=== PATIENT | male | born 1970 | race Caucasian/White ===

== ENCOUNTER 2018-02-26 00:23 | Observation (INO) ==
[2018-02-26 00:47] LABS: Basophils # 0.1 K/mm3 (0-0.2); Basophils % 0.6 % (0.1-2.0); Eosinophils # 0.2 K/mm3 (0.0-0.4); Eosinophils % 1.7 % (0.1-12.0); Hemoglobin 14.9 g/dL (14.1-18.0); Lymphocytes # 2.6 K/mm3 (0.7-4.5); Lymphocytes % 21.4 K/mm3 (10-50); Mean Corpuscular HGB Conc 32.4 g/dL (31.8-35.4); Mean Corpuscular Hemoglobin 27.6 pg (27.0-31.2); Mean Corpuscular Volume 85.1 fl (80-94); Mean Platelet Volume 8.9 fl (7.4-10.4); Monocytes # 0.7 K/mm3 (0.1-1.0); Monocytes % 5.6 % (1.7-9.3); Neutrophils # 8.5 K/mm3 (1.8-7.8); Neutrophils % 70.7 % (37.0-80.0); Platelet Count 199 K/mm3 (142-424); Red Blood Count 5.41 M/mm3 (4.60-6.20); Red Cell Distribution Width 13.3 % (11.5-17.5)
[2018-02-26 00:57] LABS: Bilirubin,Total 0.4 mg/dL (0.2-1.0); Calcium 9.3 mg/dL (8.5-10.1); Globulin 3.9 gm/dl (1.3-3.2); Total Protein,Serum 7.9 gm/dL (6.4-8.2)
--- NOTE | 2018-02-26 01:07 | Emergency Department Note ---
ED Disposition Clinical Impression: Renal insufficiency Cholecystitis with cholelithiasis Qualifiers: Cholelithiasis location: gallbladder Cholecystitis acuity: acute Biliary obstruction: without biliary obstruction Qualified Code(s): K80.00 - Calculus of gallbladder with acute cholecystitis without obstruction Disposition: Admitted as Observation Condition on Discharge: Good - Critical Care Critical Care Time: No Attestation: On 02/26/18, the high probability of a clinically significant, sudden or life threatening deterioration of the following system(s) required my full and direct attention, intervention and personal management. The time I documented below is in addition to time spent performing reported procedures but includes the following listed in this critical care notation. Medical Decision Making - Medical Records Medical records reviewed: Yes: I reviewed the patient's medical records. - Idris Inquiry Pt receiving controlled substance: No Vital Signs: 02/26/18 00:26 Pulse Rate [Left Radial] 78 Respiratory Rate 18 Blood Pressure [Left Arm] 143/104 Blood Pressure Mean [Left Arm] 117 Blood Pressure Source [Left Arm] Automatic Cuff Blood Pressure Position [Left Arm] Sitting 02 Sat by Pulse Oximetry 100 Oxygen Delivery Method Room Air - Lab Data Lab results reviewed: Yes: I reviewed the patient's lab results. Lab Results 02/26/18 00:35: WBC 12.0 H, RBC 5.41, Hgb 14.9, Hct 46.0, MCV 85.1, MCH 27.6, MCHC 32.4, RDW 13.3, Plt Count 199, MPV 8.9, Neut % (Auto) 70.7, Lymph % (Auto) 21.4, [place] % (Auto) 5.6, Eos % (Auto) 1.7, Baso % (Auto) 0.6, Neut # (Auto) 8.5 H, Lymph # (Auto) 2.6, [place] # (Auto) 0.7, Eos # (Auto) 0.2, Baso # (Auto) 0.1 02/26/18 00:35: Sodium 139, Potassium 4.0, Chloride 103, Carbon Dioxide 25, Anion Gap 15.0, BUN 20 H, Creatinine 1.40 H, Estimated Creat Clear 123, Estimated GFR 54 L, Est GFR ( Amer) 65, Glucose 185 H, Calcium 9.3, Total Bilirubin 0.4, AST 20, ALT 39, Alkaline Phosphatase 103, Total Protein 7.9 , Albumin 4.0, Globulin 3.9 H, Albumin/Globulin Ratio 1.0 L, Amylase 95, Lipase 185 Result diagrams: 02/26/18 00:35 02/26/18 00:35 Orders (Tests/Meds): ED MEDICATIONS Discontinued Medications Generic Name Dose Route Start Last Admin Trade Name Ahsanq PRN Reason Stop Dose Admin Famotidine 20 mg 02/26/18 00:34 02/26/18 00:38 Pepcid 20mg/2ml Vial IV 02/26/18 00:35 20 mg ONCE ONE Administration Ketorolac Tromethamine 30 mg 02/26/18 00:45 02/26/18 00:45 Toradol 30mg/Ml Vial IV 02/26/18 00:46 30 mg ONCE ONE Administration Metoclopramide HCl 10 mg 02/26/18 00:34 02/26/18 00:38 Reglan 10mg/2ml Vial IVP 02/26/18 00:35 10 mg ONCE ONE Administration Morphine Sulfate 4 mg 02/26/18 01:06 02/26/18 01:07 Morphine 4mg/Ml Syringe IV 02/26/18 01:07 4 mg ONCE ONE Administration Ondansetron HCl 4 mg 02/26/18 01:02 02/26/18 01:06 Zofran 4mg/2ml Vial IV 02/26/18 01:03 4 mg ONCE ONE Administration ORDERS Category Date Time Status CT abdomen pelvis w con Stat Cat Scan 02/26/18 00:[address] abdomen pelvis wo con Stat Cat Scan 02/26/18 00:49 Ordered - CT Data CT Scan: Abdomen, Pelvis Time Received: 01:[address] Reviewed: Yes: I have viewed the radiologist's interpretation Preliminary Findings: Abnormal (see report) - ECG Data Tracing #1 I reviewed this ECG and interpreted as documented below: Normal Sinus Rhythm: Yes Ischemic changes: non-specific ST-T wave changes - Physician Consults Physician Consulted: kandice Reason -: Admission Nausea/Vomiting/Diarrhea HPI - General Chief complaint: Abdominal Pain Stated complaint: Lower Abdominal Pain Time Seen by Provider: 02/26/18 00:35 Mode of Arrival: Ambulatory Source of Information: Patient, Spouse, Medical Record Limitations: No Limitations Description of Symptoms (Recalled from ER Triage Doc. by RN): Pt reports abdominal pain in RLQ, nausea, and pain in his lower back - History of Present Illness HPI Narrative: progressive rt upper abd pain with nausea tonight - has had gb issue in past MD complaint: nausea, vomiting, abdominal pain Onset (ago): hour(s) Associated Abdominal Pain: Yes Location of pain: RUQ Severity: moderate Quality: sharp Consistency: constant Associated symptoms: nausea/vomiting - Related Data Home Medications Medication Instructions Recorded Confirmed Atorvastatin Calcium [Atorvastatin 20 mg PO DAILY 02/26/18 02/26/18 20mg Tab] Lisinopril [Lisinopril 10mg Tab] 10 mg PO DAILY 02/26/18 02/26/18 Metformin HCl 1,000 mg PO BID 02/26/18 02/26/18 Allergies Allergy/AdvReac Type Severity Reaction Status Date / Time No Known Allergies Allergy Unknown Uncoded 09/16/17 15:[address] [facility] History I have reviewed the patient's past medical history: Yes Medical History: Reports:: Diabetes Mellitus Type 2 - Social History Alcohol Intake: current Alcohol Intake Frequency:: a few times a month - Psychiatric History Expresses thoughts of harming self/others: None Suicide Plan Description: No Plan ROS Obtained: Yes All systems reviewed & no additional complaints - Constitutional Constitutional: Denies fever(s) - Eyes Eyes: Denies change in vision - ENT Ears, Nose, Mouth, and Throat: Denies sore throat - Cardiovascular Cardiovascular: Denies chest pain - Respiratory Respiratory: No cough - Gastrointestinal Gastrointestingal: Reports: as per HPI, abdominal pain, nausea, vomiting. Denies: diarrhea, black, tarry stools - Genitourinary Male Genitourinary: Denies hematuria - Musculoskeletal Musculoskeletal: Denies joint pain, Denies joint swelling - Integumentary/Breasts Skin/Breast: Denies rash - Neurologic Neurologic: Denies seizure-like activity Physical Exam - General General appearance: alert, in no apparent distress - Head Head exam: normocephalic - Eye Eye exam: Present: PERRL, EOMI - ENT ENT exam: Present: mucous membranes dry - Neck Neck exam: Present: trachea midline - Respiratory Respiratory exam: Absent: respiratory distress - Cardiovascular Cardiovascular exam: Present: regular rate, systolic murmur - Abdominal Exam Abdominal exam: Present: soft, tenderness, Rolon's sign Abdominal tenderness: Present: RUQ, moderate - Extremities Exam Extremities exam: Absent: calf tenderness - Neurological Exam Neurological exam: Present: alert, oriented X3, CN II-XII intact - Skin Skin exam: Absent: rash
--- NOTE | 2018-02-26 06:38 | History & Physical Report ---
*Admission Date: 02/26/18 *Chief complaint: Abdominal pain *History of present illness: 48-year-old male with diabetes and morbid obesity presented to the emergency department with a near 12 hour episode of abdominal pain that started in the right flank and right upper quadrant and radiated across the abdomen to the left side. Patient tells me around noon yesterday after eating to turkey sandwiches for lunch he developed a mild nausea and "queasy stomach". The symptom of nausea never decreased. After eating chicken noodle soup for supper his pain began to increase in intensity. When pain was not easing up he presented to the emergency department around midnight. In the ER workup was begun and patient was diagnosed with acute cholecystitis. He has been admitted for abdominal ultrasound, IV fluids, surgical consultation. Patient denies vomiting or diarrhea. His pain did not respond to Tylenol or ibuprofen. He had a similar pain earlier in the week and admits to getting this pain more frequently over the last 2-3 months. He is always believed is related to his gallbladder. His CT scan showed a distended gallbladder with intraluminal stones [facility] History I have reviewed the patient's past medical history: Yes Medical History: Reports:: Diabetes Mellitus Type 2, Hyperlipidemia, Hypertension - *Social History Educational Level: Completed High School Smoking Status: Former smoker Tobacco Type: cigarettes # Packs/Day (cigarettes): 3 #Yrs smoked (if former smoker): 30 Alcohol Intake: never Alcohol Intake Frequency:: a few times a month Occupational Status: employed Housing: house Household Members: spouse, children - Psychiatric History Expresses thoughts of harming self/others: None Suicide Plan Description: No Plan *Family Hx:: Coronary Artery Disease, Diabetes, Heart Attack, Hyperlipidemia, Hypertension, Kidney Disease Review of Systems - Review of Systems Review of systems:: unable to obtain - Constitutional Reports chills - *Cardiovascular Denies chest pain at rest, Denies chest pain with activity - *Respiratory Denies chest congestion, Denies cough, Denies shortness of breath - *Gastrointestinal Reports abdominal pain, Denies change in bowel habits, Denies constipation, Denies difficulty swallowing - *Neurologic Denies seizure-like activity Meds Home Medications Medication Instructions Recorded Confirmed Type Aspirin [Aspir 81] 162 mg PO DAILY 02/26/18 02/26/18 History Atorvastatin Calcium [Atorvastatin 20 mg PO DAILY 02/26/18 02/26/18 History 20mg Tab] Lisinopril [Lisinopril 10mg Tab] 10 mg PO DAILY 02/26/18 02/26/18 History Metformin HCl 1,000 mg PO BID 02/26/18 02/26/18 History Allergies Allergy/AdvReac Type Severity Reaction Status Date / Time No Known Allergies Allergy Unknown Uncoded 09/16/17 15:04 Exam Vital signs and Labs for Last 24 Hours: Temp Pulse Resp BP Pulse Ox 98.1 F 61 18 149/78 99 02/26/18 02:21 02/26/18 02:21 02/26/18 02:21 02/26/18 02:21 02/26/18 02:21 Laboratory Results - last 24 hr 02/26/18 00:35: WBC 12.0 H, RBC 5.41, Hgb 14.9, Hct 46.0, MCV 85.1, MCH 27.6, MCHC 32.4, RDW 13.3, Plt Count 199, MPV 8.9, Neut % (Auto) 70.7, Lymph % (Auto) 21.4, [place] % (Auto) 5.6, Eos % (Auto) 1.7, Baso % (Auto) 0.6, Neut # (Auto) 8.5 H, Lymph # (Auto) 2.6, [place] # (Auto) 0.7, Eos # (Auto) 0.2, Baso # (Auto) 0.1 02/26/18 00:35: Sodium 139, Potassium 4.0, Chloride 103, Carbon Dioxide 25, Anion Gap 15.0, BUN 20 H, Creatinine 1.40 H, Estimated Creat Clear 123, Estimated GFR 54 L, Est GFR ( Amer) 65, Glucose 185 H, Calcium 9.3, Total Bilirubin 0.4, AST 20, ALT 39, Alkaline Phosphatase 103, Total Protein 7.9 , Albumin 4.0, Globulin 3.9 H, Albumin/Globulin Ratio 1.0 L, Amylase 95, Lipase 185 02/26/18 05:55: POC Glucose 180 H I & O for Last 24 hours: Intake & Output 02/23/18 02/24/18 02/25/18 02/26/18 11:59 11:59 11:59 11:59 Intake Total 320 / 320 Balance 320 / 320 Weight 298 lb H&P: Result - Labs Labs: Short CBC 02/26/18 Range/Units 00:35 WBC 12.0 H (4.8-10.8) K/mm3 Hgb 14.9 (14.1-18.0) g/dL Hct 46.0 (42.0-52.0) % Plt Count 199 (142-424) K/mm3 BMP 02/26/18 00:35 Sodium 139 Potassium 4.0 Chloride 103 Carbon Dioxide 25 BUN 20 H Creatinine 1.40 H Glucose 185 H Calcium 9.3 Liver Function 02/26/18 Range/Units 00:35 Total Bilirubin 0.4 (0.2-1.0) mg/dL AST 20 (15-37) U/L ALT 39 (12-78) U/L Alkaline Phosphatase 103 (46-116) U/L Albumin 4.0 (3.4-5.0) gm/dL Assessment and Plan (1) Cholecystitis with cholelithiasis Current visit: Yes Status: Acute Qualifiers: Cholelithiasis location: gallbladder Cholecystitis acuity: acute Biliary obstruction: without biliary obstruction Qualified Code(s): K80.00 - Calculus of gallbladder with acute cholecystitis without obstruction Category: Medical Code(s): K80.10 - Calculus of gallbladder with chronic cholecystitis without obstruction - Assessment and plan all Dx Assessment and Plan for all problems:: 1. Continue IV fluids 2. Surgical consultation right upper quadrant ultrasound today.
[2018-02-26 07:04] LABS: Basophils % 0.2 % (0.1-2.0); Eosinophils % 0.2 % (0.1-12.0); Hematocrit 45.2 % (42.0-52.0); Hemoglobin 14.1 g/dL (14.1-18.0); Lymphocytes # 0.6 K/mm3 (0.7-4.5); Lymphocytes % 3.9 K/mm3 (10-50); Mean Corpuscular HGB Conc 31.2 g/dL (31.8-35.4); Mean Corpuscular Hemoglobin 27.2 pg (27.0-31.2); Mean Corpuscular Volume 87.4 fl (80-94); Mean Platelet Volume 8.7 fl (7.4-10.4); Monocytes # 0.7 K/mm3 (0.1-1.0); Monocytes % 4.5 % (1.7-9.3); Neutrophils # 13.4 K/mm3 (1.8-7.8); Neutrophils % 91.2 % (37.0-80.0); Platelet Count 200 K/mm3 (142-424); Red Blood Count 5.18 M/mm3 (4.60-6.20); Red Cell Distribution Width 13.3 % (11.5-17.5); White Blood Count 14.6 K/mm3 (4.8-10.8)
--- NOTE | 2018-02-26 07:24 | Consult Report ---
*Admission Date: 02/26/18 *Chief complaint: Right upper quadrant pain and nausea *History of present illness: This is a 48-year-old gentleman seen in consultation from Dr. Barrera after presenting to the emergency department with increasing pain in the right upper quadrant. Please see history of present illness below (copied forward from his admission H&P). 48-year-old male with diabetes and morbid obesity presented to the emergency department with a near 12 hour episode of abdominal pain that started in the right flank and right upper quadrant and radiated across the abdomen to the left side. Patient tells me around noon yesterday after eating to turkey sandwiches for lunch he developed a mild nausea and "queasy stomach". The symptom of nausea never decreased. After eating chicken noodle soup for supper his pain began to increase in intensity. When pain was not easing up he presented to the emergency department around midnight. In the ER workup was begun and patient was diagnosed with acute cholecystitis. He has been admitted for abdominal ultrasound, IV fluids, surgical consultation. Patient denies vomiting or diarrhea. His pain did not respond to Tylenol or ibuprofen. He had a similar pain earlier in the week and admits to getting this pain more frequently over the last 2-3 months. He is always believed is related to his gallbladder. His CT scan showed a distended gallbladder with intraluminal stones Review of Systems - Constitutional Denies body ache(s), Denies chills - Eyes Denies change in vision - *Cardiovascular Denies chest pain - *Respiratory Denies cough - *Gastrointestinal Reports abdominal pain, Denies coffee ground vomit, Denies black, tarry stools - *Neurologic Denies seizure-like activity - Hematologic/Lymphatic Denies easy bleeding - Allergic/Immunologic Reports GI upset with certain foods [facility] History Medical History: Reports:: Diabetes Mellitus Type 2, Hyperlipidemia, Hypertension - *Social History Educational Level: Completed High School Smoking Status: Former smoker Tobacco Type: cigarettes # Packs/Day (cigarettes): 3 #Yrs smoked (if former smoker): 30 Alcohol Intake: never Alcohol Intake Frequency:: a few times a month Occupational Status: employed Housing: house Household Members: spouse, children - Psychiatric History Expresses thoughts of harming self/others: None Suicide Plan Description: No Plan *Family Hx:: Coronary Artery Disease, Diabetes, Heart Attack, Hyperlipidemia, Hypertension, Kidney Disease Meds Home Medications Medication Instructions Recorded Confirmed Type Aspirin [Aspir 81] 162 mg PO DAILY 02/26/18 02/26/18 History Atorvastatin Calcium [Atorvastatin 20 mg PO DAILY 02/26/18 02/26/18 History 20mg Tab] Lisinopril [Lisinopril 10mg Tab] 10 mg PO DAILY 02/26/18 02/26/18 History Metformin HCl 1,000 mg PO BID 02/26/18 02/26/18 History Allergies Allergy/AdvReac Type Severity Reaction Status Date / Time No Known Allergies Allergy Unknown Uncoded 09/16/17 15:04 Exam Vital signs and Labs for Last 24 Hours: Temp Pulse Resp BP Pulse Ox 98.1 F 61 18 149/78 99 02/26/18 02:21 02/26/18 02:21 02/26/18 02:21 02/26/18 02:21 02/26/18 02:21 Laboratory Results - last 24 hr 02/26/18 00:35: WBC 12.0 H, RBC 5.41, Hgb 14.9, Hct 46.0, MCV 85.1, MCH 27.6, MCHC 32.4, RDW 13.3, Plt Count 199, MPV 8.9, Neut % (Auto) 70.7, Lymph % (Auto) 21.4, [place] % (Auto) 5.6, Eos % (Auto) 1.7, Baso % (Auto) 0.6, Neut # (Auto) 8.5 H, Lymph # (Auto) 2.6, [place] # (Auto) 0.7, Eos # (Auto) 0.2, Baso # (Auto) 0.1 02/26/18 00:35: Sodium 139, Potassium 4.0, Chloride 103, Carbon Dioxide 25, Anion Gap 15.0, BUN 20 H, Creatinine 1.40 H, Estimated Creat Clear 123, Estimated GFR 54 L, Est GFR ( Amer) 65, Glucose 185 H, Calcium 9.3, Total Bilirubin 0.4, AST 20, ALT 39, Alkaline Phosphatase 103, Total Protein 7.9 , Albumin 4.0, Globulin 3.9 H, Albumin/Globulin Ratio 1.0 L, Amylase 95, Lipase 185 02/26/18 05:55: POC Glucose 180 H 02/26/18 06:18: WBC 14.6 H, RBC 5.18, Hgb 14.1, Hct 45.2, MCV 87.4, MCH 27.2, MCHC 31.2 L, RDW 13.3, Plt Count 200, MPV 8.7, Neut % (Auto) 91.2 H, Lymph % ( Auto) 3.9 L, [place] % (Auto) 4.5, Eos % (Auto) 0.2, Baso % (Auto) 0.2, Neut # ( Auto) 13.4 H, Lymph # (Auto) 0.6 L, [place] # (Auto) 0.7, Eos # (Auto) 0.0, Baso # (Auto) 0.0 I & O for Last 24 hours: Intake & Output 02/23/18 02/24/18 02/25/18 02/26/18 11:59 11:59 11:59 11:59 Intake Total 320 / 320 Balance 320 / 320 Weight 298 lb - Constitutional no acute distress - *Routine Neck Exam Present: full ROM - *Routine Respiratory Exam Absent: respiratory distress - *Routine Cardiovascular Exam Present: RRR - *Routine Abdominal Exam Present: soft, tenderness (RUQ) Results - Labs 02/26/18 06:18 02/26/18 00:35 Laboratory Results - last 24 hr 02/26/18 00:35: WBC 12.0 H, RBC 5.41, Hgb 14.9, Hct 46.0, MCV 85.1, MCH 27.6, MCHC 32.4, RDW 13.3, Plt Count 199, MPV 8.9, Neut % (Auto) 70.7, Lymph % (Auto) 21.4, [place] % (Auto) 5.6, Eos % (Auto) 1.7, Baso % (Auto) 0.6, Neut # (Auto) 8.5 H, Lymph # (Auto) 2.6, [place] # (Auto) 0.7, Eos # (Auto) 0.2, Baso # (Auto) 0.1 02/26/18 00:35: Sodium 139, Potassium 4.0, Chloride 103, Carbon Dioxide 25, Anion Gap 15.0, BUN 20 H, Creatinine 1.40 H, Estimated Creat Clear 123, Estimated GFR 54 L, Est GFR ( Amer) 65, Glucose 185 H, Calcium 9.3, Total Bilirubin 0.4, AST 20, ALT 39, Alkaline Phosphatase 103, Total Protein 7.9 , Albumin 4.0, Globulin 3.9 H, Albumin/Globulin Ratio 1.0 L, Amylase 95, Lipase 185 02/26/18 05:55: POC Glucose 180 H 02/26/18 06:18: WBC 14.6 H, RBC 5.18, Hgb 14.1, Hct 45.2, MCV 87.4, MCH 27.2, MCHC 31.2 L, RDW 13.3, Plt Count 200, MPV 8.7, Neut % (Auto) 91.2 H, Lymph % ( Auto) 3.9 L, [place] % (Auto) 4.5, Eos % (Auto) 0.2, Baso % (Auto) 0.2, Neut # ( Auto) 13.4 H, Lymph # (Auto) 0.6 L, [place] # (Auto) 0.7, Eos # (Auto) 0.0, Baso # (Auto) 0.0 Assessment and Plan (1) Cholecystitis with cholelithiasis Current visit: Yes Status: Acute Qualifiers: Cholelithiasis location: gallbladder Cholecystitis acuity: acute Biliary obstruction: without biliary obstruction Qualified Code(s): K80.00 - Calculus of gallbladder with acute cholecystitis without obstruction Category: Medical Code(s): K80.10 - Calculus of gallbladder with chronic cholecystitis without obstruction Follow-up pending ultrasound Likely laparoscopic cholecystectomy later today (pending results of ultrasound)
--- NOTE | 2018-02-26 07:25 | Pharmacy Consult Notes ---
[facility] Pharmacy VTE Monitoring - Patient Demographics Admission date: 02/26/18 Report Date: 02/26/18 Time: 07:25 Allergies/Adverse Reactions: Patient Allergies No Known Allergies Allergy (Unverified 02/26/18 07:22) Height: 1.85 m Weight: 135.171 kg Patient Problems: Current Active Problems Cholecystitis with cholelithiasis (Acute) Renal insufficiency (Acute) - VTE Risk Labs: VTE Related Lab Results Hgb 14.1 g/dL (14.1-18.0) 02/26/18 06:18 Hct 45.2 % (42.0-52.0) 02/26/18 06:18 Plt Count 200 K/mm3 (142-424) 02/26/18 06:18 BUN 20 mg/dL (7-18) H 02/26/18 00:35 Creatinine 1.40 mg/dL (0.70-1.30) H 02/26/18 00:35 Estimated Creat Clear 123 mL/min (0-300) 02/26/18 00:35 Was VTE Risk Assessment Performed: Yes VTE Score: 2 VTE Risk Level: Low Risk - Prophylaxis VTE Prophylaxis Ordered?: Yes Types of VTE Prophylaxis: TEDS Knee High Location of Applied Device: Bilateral Lower Extremeties - VTE Diagnosis Confirmed Treatment or plan recommended: Continue Current Treatment
[2018-02-26 10:02] LABS: Lymphocytes % 4 % (10-50); Monocytes % 2 % (2-9); Neutrophils % 94 % (42-76); Total Cells Counted 100
[2018-02-26 10:03] LABS: Hypochromasia 1+
--- NOTE | 2018-02-26 11:38 | Progress Note ---
[facility] Anesthesia Checklist - Patient Identification Patient Identification: Arm Band, Verbal (Name & ) - Structural Data Admitted From: Inpatient Planned Operative Procedure/s: lap choly Consent for Planned Operative Procedure(s) Verified: Yes Verified Documents: Surgical Consent - NPO Status Verified Time NPO: 00:00 - Additional verifications Patient : No Anesthesia Reactions: No Hx Blood Transfusions: No Blood Transfusion Reaction: No Cephalosporin Allergy: No Previous Colonoscopy: No - Cardiovascular Assessment Heart Sounds: S1 & S2 Pulse Strength: Baseline Pulse Rhythm: Regular Peripheral Edema: No - Airway Assessment C-Spine Mobility Assessed: Yes TMJ Mobility Assessed: Yes Dentition: Good Dentition - Neurological Assessment Level of Consciousness: Awake, Alert, Appropriate Hx Seizures: No Numbness or tingling in extremities: No - Anesthesia Plan Anesthesia Risk discussed: Yes Anesthesia Plan: Verified ASA Class: III Anesthesia Type: General [facility] Anesthesia HX I have reviewed the patient's past medical history: Yes Medical History: Reports:: Diabetes Mellitus Type 2, Hyperlipidemia, Hypertension Other Surgeries: Yes: Hernia Repair Amputation: No Fractures: No *Family Hx:: Coronary Artery Disease, Diabetes, Heart Attack, Hyperlipidemia, Hypertension, Kidney Disease
--- NOTE | 2018-02-26 14:37 | Progress Note ---
[facility] Anesthesia Record Part I Intake, IV Amount: 1,750 Estimated blood loss (mL): 10 Urine output (mL): 0 Blood Products used (#): none Blood Pressure: 151/89 SaO2: 91 Pulse Rate: 105 Respiratory Rate: 18 Temperature: 98.5 F Patient is:: Drowsy, Nasal O2, Stable Stable to PACU at:: 14:29
--- NOTE | 2018-02-26 14:38 | Progress Note ---
[facility] Anesthesia Record Part II Discharge Time: 14:59 Destination: Medical Surgical Department PACU nurse assessment reviewed?: Yes Patient Condition:: Good Anesthesia Complications:: None
--- NOTE | 2018-02-26 14:56 | Operative Note ---
Date of procedure: 02/26/18 Pre-op Diagnosis:: Acute calculus cholecystitis Post-op Diagnosis:: Same Procedure performed:: Laparoscopic cholecystectomy Surgeon:: Evan Felix MD [place] Sewer(s):: Preston Mayers [employer]ER:: Zackary Antony Anesthesia: GETA Estimated blood loss (mL): 50 Operative findings:: Severe distention Moderate wall thickening (particularly in and around the infundibulum) Operative note:: After informed consent was obtained, the patient was taken to the operating room and placed in the supine position. General anesthesia was induced and his abdomen was prepped and draped in a sterile fashion. Secondary to history of umbilical hernia repair, a small stab incision was made in the left upper quadrant. A Veress needle was placed in position. The abdomen was insufflated. A 5 mm optical trocar was placed in the left flank. Under direct visualization a 5 mm trocar was placed just above the umbilicus. A 12 mm trocar was placed in the subxiphoid position. Two 5 mm trocars were then placed in the right upper quadrant. The gallbladder was severely distended. A small otomy was made along the anterior margin and the contents were evacuated. The gallbladder was then retracted over the liver margin. The tissue around the cystic duct was very thickened and firm. Complex dissection was utilized to free the cystic duct. Secondary to the size of the duct, the decision was made to utilize Endoloops for closure. The infundibulum was transected. Endoloops (2) were then used to control the cystic duct at the infundibular margin. The remaining infundibulum was then sharply dissected free. The remaining gallbladder was freed from the liver margin utilizing combination of blunt dissection and harmonic leatha. Both sections of the gallbladder were placed in a retrieval bag and removed through the subxiphoid trocar site. The right upper quadrant was thoroughly irrigated. Sanguinous ooze from the liver margin was controlled with Surgicel. Fascia at the subxiphoid trocar site was reapproximated with 0 Ethibond. All wounds were irrigated and skin was closed with 4-0 Monocryl. Sterile dressings were applied. The patient's anesthetic agents were reversed and he was extubated prior to transfer to recovery. Condition: stable Disposition: PACU Specimens:: Gallbladder Complications:: No immediate
[2018-02-27 06:05] LABS: Basophils % 0.3 % (0.1-2.0); Eosinophils % 0.2 % (0.1-12.0); Hematocrit 41.5 % (42.0-52.0); Lymphocytes # 1.6 K/mm3 (0.7-4.5); Lymphocytes % 12.7 K/mm3 (10-50); Mean Corpuscular HGB Conc 31.4 g/dL (31.8-35.4); Mean Corpuscular Hemoglobin 27.8 pg (27.0-31.2); Mean Corpuscular Volume 88.4 fl (80-94); Mean Platelet Volume 8.6 fl (7.4-10.4); Monocytes # 0.7 K/mm3 (0.1-1.0); Monocytes % 5.2 % (1.7-9.3); Neutrophils # 10.2 K/mm3 (1.8-7.8); Neutrophils % 81.5 % (37.0-80.0); Platelet Count 174 K/mm3 (142-424); Red Blood Count 4.69 M/mm3 (4.60-6.20); Red Cell Distribution Width 13.4 % (11.5-17.5); White Blood Count 12.6 K/mm3 (4.8-10.8)
[2018-02-27 06:16] LABS: Albumin Level 3.2 gm/dL (3.4-5.0); Albumin/Globulin Ratio 0.8 (1.1-1.8); Anion Gap 10.9 mEq/L (5-15); Bilirubin,Total 1.2 mg/dL (0.2-1.0); Calcium 8.9 mg/dL (8.5-10.1); Potassium 4.9 mmoL/L (3.5-5.1); Total Protein,Serum 7.2 gm/dL (6.4-8.2)
--- NOTE | 2018-02-27 06:58 | Discharge Summary ---
General - General Admission date:: 02/26/18 Discharge date: 02/27/18 HPI HPI: This is a 48-year-old gentleman seen in consultation from Dr. Barrera after presenting to the emergency department with increasing pain in the right upper quadrant. Please see history of present illness below (copied forward from his admission H&P). 48-year-old male with diabetes and morbid obesity presented to the emergency department with a near 12 hour episode of abdominal pain that started in the right flank and right upper quadrant and radiated across the abdomen to the left side. Patient tells me around noon yesterday after eating to turkey sandwiches for lunch he developed a mild nausea and "queasy stomach". The symptom of nausea never decreased. After eating chicken noodle soup for supper his pain began to increase in intensity. When pain was not easing up he presented to the emergency department around midnight. In the ER workup was begun and patient was diagnosed with acute cholecystitis. He has been admitted for abdominal ultrasound, IV fluids, surgical consultation. Patient denies vomiting or diarrhea. His pain did not respond to Tylenol or ibuprofen. He had a similar pain earlier in the week and admits to getting this pain more frequently over the last 2-3 months. He is always believed is related to his gallbladder. His CT scan showed a distended gallbladder with intraluminal stones Hospital Course Hospital Course: She was admitted for surgical consultation and ultrasound. Ultrasound of the gallbladder revealed stones. Patient underwent laparoscopic cholecystectomy on February 26. There were no complications. Patient's postoperative course was uneventful. On February 27 he was discharged home and will follow up with Dr. Felix per his instructions. Objective Vital signs: Temp Pulse Resp BP Pulse Ox 98.9 F 79 18 124/76 90 L 02/27/18 03:53 02/27/18 03:53 02/27/18 03:53 02/27/18 03:53 02/27/18 03:53 Results Labs on day of discharge: Labs from last 24 hours 02/27/18 02/27/18 02/27/18 05:51 05:30 05:30 WBC 12.6 H RBC 4.69 Hgb 13.0 L Hct 41.5 L MCV 88.4 MCH 27.8 MCHC 31.4 L RDW 13.4 Plt Count 174 MPV 8.6 Neut % (Auto) 81.5 H Lymph % (Auto) 12.7 [place] % (Auto) 5.2 Eos % (Auto) 0.2 Baso % (Auto) 0.3 Neut # (Auto) 10.2 H Lymph # (Auto) 1.6 [place] # (Auto) 0.7 Eos # (Auto) 0.0 Baso # (Auto) 0.0 Total Counted Neutrophils % (Manual) Lymphocytes % (Manual) Monocytes % (Manual) Platelet Estimate Hypochromasia Sodium 139 Potassium 4.9 Chloride 104 Carbon Dioxide 29 Anion Gap 10.9 BUN 15 D Creatinine 1.15 Estimated Creat Clear 149 Estimated GFR 68 Est GFR ( Amer) 82 D Glucose 139 H D POC Glucose 121 H Calcium 8.9 Total Bilirubin 1.2 H AST 25 ALT 50 D Alkaline Phosphatase 67 Total Protein 7.2 Albumin 3.2 L D Globulin 4.0 H Albumin/Globulin Ratio 0.8 L 02/26/18 02/26/18 02/26/18 19:57 17:14 11:18 WBC RBC Hgb Hct MCV MCH MCHC RDW Plt Count MPV Neut % (Auto) Lymph % (Auto) [place] % (Auto) Eos % (Auto) Baso % (Auto) Neut # (Auto) Lymph # (Auto) [place] # (Auto) Eos # (Auto) Baso # (Auto) Total Counted Neutrophils % (Manual) Lymphocytes % (Manual) Monocytes % (Manual) Platelet Estimate Hypochromasia Sodium Potassium Chloride Carbon Dioxide Anion Gap BUN Creatinine Estimated Creat Clear Estimated GFR Est GFR ( Amer) Glucose POC Glucose 159 H 195 H 164 H Calcium Total Bilirubin AST ALT Alkaline Phosphatase Total Protein Albumin Globulin Albumin/Globulin Ratio 02/26/18 02/26/18 06:18 06:18 WBC 14.6 H RBC 5.18 Hgb 14.1 Hct 45.2 MCV 87.4 MCH 27.2 MCHC 31.2 L RDW 13.3 Plt Count 200 MPV 8.7 Neut % (Auto) 91.2 H Lymph % (Auto) 3.9 L [place] % (Auto) 4.5 Eos % (Auto) 0.2 Baso % (Auto) 0.2 Neut # (Auto) 13.4 H Lymph # (Auto) 0.6 L [place] # (Auto) 0.7 Eos # (Auto) 0.0 Baso # (Auto) 0.0 Total Counted 100 Neutrophils % (Manual) 94 H Lymphocytes % (Manual) 4 L Monocytes % (Manual) 2 Platelet Estimate Normal Hypochromasia 1+ Sodium 140 Potassium 5.0 D Chloride 104 Carbon Dioxide 25 Anion Gap 16.0 H BUN 23 H Creatinine 1.39 H Estimated Creat Clear 123 Estimated GFR 54 L Est GFR ( Amer) 66 Glucose 194 H POC Glucose Calcium Total Bilirubin AST ALT Alkaline Phosphatase Total Protein Albumin Globulin Albumin/Globulin Ratio DS: Diagnosis - Discharge Diagnosis (1) Cholecystitis with cholelithiasis Status: Acute Discharge Plan - Patient Discharge Instructions ACTIVITY: Continue current activity DIET: continue same diet Patient Instructions: Surgical Site Infection, Cholecystectomy -- Laparoscopic Surgery - Follow up Plan Follow up with: Evan Felix MD [Staff Physician] - Disposition: Home, Self-Skilled Nursing Medications: Home Medications Medication Instructions Recorded Confirmed Type Aspirin [Aspir 81] 162 mg PO DAILY 02/26/18 02/26/18 History Atorvastatin Calcium [Atorvastatin 20 mg PO DAILY 02/26/18 02/26/18 History 20mg Tab] Lisinopril [Lisinopril 10mg Tab] 10 mg PO DAILY 02/26/18 02/26/18 History Metformin HCl 1,000 mg PO BID 02/26/18 02/26/18 History Prescriptions/Medication Reconciliation: Continue Metformin HCl 1,000 mg PO BID Lisinopril [Lisinopril 10mg Tab] 10 mg PO DAILY Atorvastatin Calcium [Atorvastatin 20mg Tab] 20 mg PO DAILY Aspirin [Aspir 81] 162 mg PO DAILY
== END 2018-02-27 09:30 | disposition home or self-care (01) ==
LOC: 2ND 00:23 → ER 00:23 → 2ND 02:17
PROVIDERS: ADMIT Internal Medicine Adolescent Medicine; ATTEND Family Medicine

== ENCOUNTER → 2018-03-06 09:40 | Outpatient (CLI) | payer BC, SELFPAY ==
--- NOTE | 2018-03-06 09:42 | XR_ITS ---
XR chest 2V Ordering Physician: Zackary Barrera MD Patient Age: 48 years: Male HISTORY: ITS.REASON: COUGH, FEVER,CHILLSrecent gallbladder surgery last week TECHNIQUE: PA and lateral chest COMPARISON : FINDINGS Bibasilar atelectasis, most pronounced at the left base. Difficult to exclude associated basilar infiltrate. In fact on review of the lateral film as well as I am moderately suspect of a minimal infiltrate at the right lower lobe posteriorly associated with the elevated right hemidiaphragm correlation required. No pleural effusion. Upper lung quinones are clear. Normal pulmonary vascularity. Heart normal size. Daisy and mediastinal structures unremarkable IMPRESSION 1. Bibasilar atelectasis 2. Suspect associated minimal pneumonic infiltrate at the RLL lobe posteriorly .
[2018-03-06 10:19] LABS: Basophils % 0.2 % (0.1-2.0); Eosinophils # 0.1 K/mm3 (0.0-0.4); Eosinophils % 0.8 % (0.1-12.0); Hematocrit 40.9 % (42.0-52.0); Hemoglobin 13.1 g/dL (14.1-18.0); Lymphocytes # 1.6 K/mm3 (0.7-4.5); Lymphocytes % 11.2 K/mm3 (10-50); Mean Corpuscular Hemoglobin 27.8 pg (27.0-31.2); Mean Corpuscular Volume 86.7 fl (80-94); Mean Platelet Volume 7.8 fl (7.4-10.4); Monocytes # 0.7 K/mm3 (0.1-1.0); Monocytes % 4.7 % (1.7-9.3); Neutrophils # 11.6 K/mm3 (1.8-7.8); Neutrophils % 83.1 % (37.0-80.0); Platelet Count 324 K/mm3 (142-424); Red Blood Count 4.72 M/mm3 (4.60-6.20); Red Cell Distribution Width 12.6 % (11.5-17.5)
== END ==
PROVIDERS: PCP Family Medicine; Visit Provider Family Medicine
DX: R50.9 Fever, unspecified (principal); R05 Cough
CPT/HCPCS: 36415; 71046; 85025

== ENCOUNTER → 2021-03-16 19:20 | Outpatient (CLI) | payer OTHER, SELFPAY | PROVIDERS: Visit Provider Nurse Practitioner Family | DX: Z11.52 Encounter for screening for COVID-19 (principal); U07.1 COVID-19 | CPT/HCPCS: U0003 ==

== ENCOUNTER 2021-03-19 18:58 | Emergency (ER) | payer BC, SELFPAY ==
[2021-03-19 19:00] VITALS: BP 143/89; PULSE 96; RESP 19; TEMP 37.1; O2SAT 98; BMI 40.8
[2021-03-19 19:08] LABS: Apearance,Urine Cloudy (Clear); Color,Urine Dark Yellow (Yellow); Glucose,Urine (UA) 1000 (Negative); Protein,Urine 2+ (Negative); Specific Gravity, Urine 1.025 (1.005-1.030)
[2021-03-19 19:09] LABS: Bilirubin,Urine Negative (Negative); Blood, Urine 3+ (Negative); Ketones,Urine Negative (Negative); UTC Leukocyte Esterase,Urine 1+ (Negative); UTC Nitrate,Urine Negative (Negative); Urobilinogen,Urine 0.2 EU/dl (0.2)
--- NOTE | 2021-03-19 19:20 | HMH.EDUTC ---
[facility] – [place] Disposition Clinical Impression: UTI (urinary tract infection) Qualifiers: Urinary tract infection type: site unspecified Hematuria presence: with hematuria Qualified Code(s): N39.0 - Urinary tract infection, site not specified; R31.9 - Hematuria, unspecified Disposition: Home, Self-Care Condition on Discharge: Good Instructions: DI for Urinary Tract Infection (UTI), Urinary Tract Infection Additional Instructions: *Increase fluids. Water not Soda or Tea *Start antibiotic immediately and be sure to take as ordered for the FULL length of time although you should start to see improvement over the next 48 hours *Pyridium as needed Remember this medication will turn your urine [place]. This is normal but it will stain what ever it gets on *You should not use Pyridium for more than 48 hours. If so , follow up with your primary physician to review urine culture and ensure that antibiotic is adequate for infection *Be SURE to follow up anytime for new or worsening symptoms with your family doctor. AND in 48 hours for urine culture results with your family doctor, if you do not have a doctor then you may call back to the [facility] for urine culture results and further treatment. We do recommend that you choose and establish care with a Primary Care Physician. AND follow up with them in 10-14 days to repeat UA to ensure infection is resolved and blood no longer present *Be sure to let your PCP know that we sent urine cultures from the [facility] so they can follow up to ensure that you area the on the correct antibiotic Call your doctor office and make appointment for 48 hours (2 days from today) to follow up and get the results of your urine culture and further treatment Make sure to monitor your Finger stick blood sugars closely while on Levaquin Prescriptions: levoFLOXacin [Levaquin 750mg tablet] 750 mg PO DAILY 5 Days #5 tab Transmission Status: Pending to [facility] Phenazopyridine HCl [Pyridium 200mg Tablet] 200 pow PO TID #6 tab Transmission Status: Pending to [facility] Referrals: Zackary Barrera MD [Primary Care Provider] - As needed Time of Disposition: 19:51 Medical Decision Making - Idris Inquiry Pt receiving controlled substance: No Idris was queried for this patient: No Vital Signs: 03/19/21 19:00 Temperature 98.8 F Temperature Source Oral Pulse Rate [Right Brachial] 96 H Respiratory Rate 19 Blood Pressure [Right Arm] 143/89 H Blood Pressure Mean [Right Arm] 107 Blood Pressure Source [Right Arm] Automatic Cuff Blood Pressure Position [Right Arm] Sitting 02 Sat by Pulse Oximetry 98 Oxygen Delivery Method Room Air - Lab Data Lab results reviewed: Yes: I reviewed the patient's lab results. Lab Results 03/19/21 19:00: Urine Color Dark yellow, Urine Appearance Cloudy, Urine pH 5.0, Ur Specific [place] 1.025, Urine Protein 2+, Urine Glucose (UA) 1000, Urine Ketones Negative, Urine Blood 3+, Urine Nitrate Negative, Urine Bilirubin Negative, Urine Urobilinogen 0.2, Ur Leukocyte Esterase 1+ A Orders (Tests/Meds): ORDERS Category Date Time Status Urine Culture Stat Micro 03/19/21 19:05 Received Medical Decision Narrative: Patient denies renal/kidney problems Discussed with patient finding of glucose in urine and patient advised that he is a diabetic and was currently dx with BEVERLEY Discussed FSBS and patient declined states he will monitor it at home and follow up with PCP after quarantine up for COVID state that he wants treated for UTI patient reports history of Kidney stones but does not feel like that States that he has some achy like feeling in right lower back and burning with urination Denies radiation and denies difficulty urinating at this time Reports burning with urination and feeling urgency/frequency at times like he had in past with prior UTI. Due to male and diabetic Medications discussed with pharmacy and patient still denies Renal/Kidney insufficiency pharmacy recommended Levaq
[2021-03-19 19:42] VITALS: BP 143/89; PULSE 96; RESP 19; TEMP 37.1; O2SAT 98
== END 2021-03-19 19:50 | disposition home or self-care (01) ==
PROVIDERS: Emergency Provider Nurse Practitioner; PCP Family Medicine
DX: N30.01 Acute cystitis with hematuria (principal); E11.9 Type 2 diabetes mellitus without complications; I10 Essential (primary) hypertension; E78.5 Hyperlipidemia, unspecified; Z87.891 Personal history of nicotine dependence; Z79.899 Other long term (current) drug therapy
CPT/HCPCS: 81003; 87086; 87088; 87186; 96372; 99202; G0463

== ENCOUNTER → 2022-06-05 12:04 | Outpatient (CLI) | payer BC, SELFPAY ==
--- NOTE | 2022-06-05 12:10 | XR_ITS ---
FINAL REPORT CLINICAL HISTORY: ACUTE PAIN OF RIGHT HIP FINDINGS: Right hip Three views were obtained. There is no acute fracture or dislocation. There are severe degenerative changes of the right hip. No soft tissue abnormality is identified. IMPRESSION: Severe degenerative changes. Reviewed, Interpreted and Dictated by Eder Downs III, MD Transcribed by Azeb Cherry Authenticated and . [facility]
== END ==
PROVIDERS: PCP Family Medicine; Visit Provider Family Medicine
DX: M25.551 Pain in right hip (principal)
CPT/HCPCS: 73502

== ENCOUNTER → 2022-06-25 15:42 | Outpatient (CLI) | payer BC, SELFPAY ==
--- NOTE | 2022-06-25 15:48 | MR_ITS ---
PROCEDURE INFORMATION: Exam: MR Right Lower Extremity Joint Without Contrast; Hip Exam date and time: 06/25/2022 4:15 PM Age: 52 years old Clinical indication: Pain; Hip; Right; Additional info: Right hip pain TECHNIQUE: Imaging protocol: Magnetic resonance imaging of the Right lower extremity joint without contrast. Exam focused on the hip. COMPARISON: CR XR HIP RT 2-3V W/PELVIS 06/05/2022 12:18 PM FINDINGS: Bones and cartilage: Right hip arthropathy visualized. There is narrowing of the right hip joint space, with subchondral cystic and edematous change within the adjacent bone marrow. No visualized acute fracture or dislocation of the right hip. There is a 1.1 cm nonspecific sclerotic lesion within the left femoral head. Within the intratrochanteric region of the right femur, there is a nonspecific T1 hypointense lesion measuring 9 mm in diameter. This is increased in signal intensity on STIR. This demonstrates a narrow zone of transition. No adjacent soft tissue mass is seen. There is no osseous expansion. This demonstrates nonaggressive MR signal characteristics. Minimal edema adjacent to the right greater trochanter. This is seen adjacent to the right gluteus medius and minimus tendons, suggestive of gluteal tendinopathy. Mild left hip arthropathy. Joint spaces: Small right hip joint effusion. Labrum: Evaluation of the labrum is limited on this study. Heterogeneous signal intensity of the anterior superior aspect of the right hip labrum, suggestive of degenerative change. Labral tear cannot be excluded. TENDONS: Tendons of iliopsoas group: No evidence of tear. Tendons of medial compartment of thigh: No evidence of tear. Tendons of lateral rotators of hip: No evidence of tear. Tendons of gluteal group: See Bones and cartilage finding. Muscles: Minimal edema deep to the right gluteus minimus muscle. Soft tissues: Mild soft tissue edematous changes identified medial to the right femoral neck. Lymph nodes: Nonspecific inguinal lymph nodes are identified, a few which are enlarged. Enlarged left inguinal lymph node measures 5.1 cm in length with a fatty hilum. Mildly enlarged external iliac chain lymph nodes are also seen bilaterally. On the left side, one of these lymph nodes measures 2.4 x 1.1 cm. Reproductive: Heterogeneous signal intensity of the central zone of the prostate, suggestive of benign prostatic hypertrophy. Evaluation of the prostate is limited. IMPRESSION: 1. Advanced right hip arthropathy. 2. Small right hip joint effusion. 3. Minimal edema adjacent to the right greater trochanter. This is seen adjacent to the right gluteus medius and minimus tendons, suggestive of gluteal tendinopathy. 4. Mild soft tissue edematous change is identified medial to the right femoral neck. 5. Within the intratrochanteric region of the right femur, there is a small lesion. This demonstrates nonaggressive MR signal characteristics. A follow-up MRI with/without contrast or bone scan is recommended in 6 months. 6. Nonspecific inguinal lymph nodes are identified, a few which are enlarged. Mildly enlarged external iliac chain lymph nodes are also seen bilaterally. 7. Additional findings described above.
== END ==
LOC: RAD 15:45
PROVIDERS: PCP Family Medicine; Visit Provider Family Medicine
DX: M25.551 Pain in right hip (principal)
CPT/HCPCS: 73721